=== PATIENT | male | born 1985 | race Caucasian/White ===

== ENCOUNTER 2025-03-28 10:29 | Emergency (ER) | payer OTHER ==
[~2025-03-28] VITALS: Ht 177.8 cm; Wt 113.0 kg
[2025-03-28] MEDS ORDERED: ONDA-282 (10:41)
[2025-03-28 12:15] LABS: BASO # 0.0 10^3/uL (0.0-0.2); BASO % 0.3 % (0.0-1.0); EOS # 0.0 10^3/uL (0.0-0.5); EOS % 0.2 % (0.0-3.0); LYMPH # 1.3 10^3/uL (1.5-5.0); LYMPH % 11.1 % (24.0-44.0); MONO # 0.6 10^3/uL (0.0-0.8); MONO % 5.1 % (2.0-8.0); NEUTROPHILS # 10.0 10^3/uL (1.5-8.5); NEUTROPHILS % 82.9 % (36.0-66.0); PLATELET COUNT, AUTOMATED 398 10^3/uL (150-450)
[2025-03-28 12:22] LABS: ERYTHROCYTE SEDIMENTATION RATE 7 mm/hr (0-15)
[2025-03-28 12:35] LABS: C REACTIVE PROTEIN QUANTITATIV < 0.50 MG/DL (<1.0)
[2025-03-28 12:36] LABS: ALT/SGPT 75 U/L (7.0-40); AST/SGOT 44 U/L (<34); CALCIUM LEVEL 9.8 MG/DL (8.5-10.1); CARBON DIOXIDE LEVEL 27 MMOL/L (20-31); CHLORIDE LEVEL 101 MMOL/L (98-107); CREATININE FOR GFR 0.95 MG/DL (0.70-1.30); GLOMERULAR FILTRATION RATE > 90.0 (>60); POTASSIUM SERUM 4.6 MMOL/L (3.5-5.1); SODIUM LEVEL 141 MMOL/L (136-145)
[2025-03-28] MEDS ORDERED: REGL10TA6 PO (14:32)
[2025-03-28 14:49] VITALS: BP 162/73; TEMP 99; O2SAT 99
== END 2025-03-28 14:51 | disposition home or self-care (01) ==
LOC: M ED 10:29
DX: R11.10 Vomiting, unspecified (principal); F12.10 Cannabis abuse, uncomplicated; F17.200 Nicotine dependence, unspecified, uncomplicated; F10.10 Alcohol abuse, uncomplicated; Z88.0 Allergy status to penicillin; Z91.030 Bee allergy status; Z79.83 Long term (current) use of bisphosphonates; Z79.899 Other long term (current) drug therapy

== ENCOUNTER 2025-04-30 07:33 | Day surgery (SDC) | payer OTHER ==
[~2025-04-30] VITALS: Ht 175.3 cm; Wt 108.0 kg
[~2025-04-30 07:33] MED LIST: METO10TA3 PO; OMEP-173 PO; ONDA-282 PO; REGL10TA6 PO
[2025-04-30] MEDS ORDERED: LIDOCAINE 2% 100 MG/5 ML SDV (FOR ANES.) As Ordered ONE (07:53)
[2025-04-30 08:37] VITALS: TEMP 97.6
[2025-04-30 08:55] VITALS: BP 131/84; O2SAT 100
== END 2025-04-30 09:02 | disposition home or self-care (01) ==
LOC: M OPP 07:33
PROVIDERS: ATTEND Internal Medicine Gastroenterology
DX: K31.89 Other diseases of stomach and duodenum (principal); K22.89 Other specified disease of esophagus; R11.2 Nausea with vomiting, unspecified; R63.4 Abnormal weight loss; Z88.0 Allergy status to penicillin; Z91.030 Bee allergy status; Z79.899 Other long term (current) drug therapy
CPT/HCPCS: 43239; 88305; J3010